=== PATIENT | female | born 1950 | race Caucasian/White ===

== ENCOUNTER → 2016-06-03 | Outpatient (CLI) | payer MEDICARE, OTHER ==
[2016-06-03 15:49] LABS: ALANINE AMINOTRANSFERASE 32 U/L (9-52); ALBUMIN 4.3 g/dL (3.5-5.0); ALKALINE PHOSPHATASE 87 U/L (38-126); ASPARTATE AMINO TRANSFERASE 24 U/L (14-36); BILIRUBIN,TOTAL 0.4 mg/dL (0.2-1.3); CHOLESTEROL 192.16 mg/dL (0-200); Direct HDL 52 mg/dL (>40); TOTAL PROTEIN 6.6 g/dL (6.3-8.2); TRIGLYCERIDES 308 mg/dL (<150)
[2016-06-03 16:00] LABS: DIRECT LDL 95 mg/dL (<100)
[2016-06-03 16:03] LABS: VLDL CHOLESTEROL 61.6 mg/dL (10-31)
== END ==
LOC: OD 13:58
PROVIDERS: ATTEND Specialist
DX: E78.5 Hyperlipidemia, unspecified (principal); E66.9 Obesity, unspecified; G89.4 Chronic pain syndrome; I34.8 Other nonrheumatic mitral valve disorders; I36.1 Nonrheumatic tricuspid (valve) insufficiency; K21.9 Gastro-esophageal reflux disease without esophagitis; R00.2 Palpitations; R09.89 Other specified symptoms and signs involving the circulatory and respiratory systems; R94.31 Abnormal electrocardiogram [ECG] [EKG]; R06.00 Dyspnea, unspecified; R51 Headache; Z79.899 Other long term (current) drug therapy
CPT/HCPCS: 36415; 80061; 80076

== ENCOUNTER → 2016-09-27 | Outpatient (CLI) | payer MEDICARE, OTHER ==
[2016-09-27 13:08] LABS: ALANINE AMINOTRANSFERASE 28 U/L (9-52); ALBUMIN 4.2 g/dL (3.5-5.0); ALKALINE PHOSPHATASE 85 U/L (38-126); ASPARTATE AMINO TRANSFERASE 25 U/L (14-36); BILIRUBIN,DIRECT 0.4 mg/dL (0.0-0.4); BILIRUBIN,TOTAL 0.6 mg/dL (0.2-1.3); CHOLESTEROL 215.97 mg/dL (0-200); Direct HDL 53 mg/dL (>40); TOTAL PROTEIN 7.2 g/dL (6.3-8.2); TRIGLYCERIDES 352 mg/dL (<150)
[2016-09-27 13:19] LABS: DIRECT LDL 95 mg/dL (<100)
[2016-09-27 13:25] LABS: VLDL CHOLESTEROL 70.4 mg/dL (10-31)
== END ==
LOC: OD 11:36
PROVIDERS: ATTEND Specialist
DX: E78.5 Hyperlipidemia, unspecified (principal)
CPT/HCPCS: 36415; 80061; 80076

== ENCOUNTER 2016-11-17 08:06 | Day surgery (SDC) | payer MEDICARE, OTHER ==
[2016-11-17 09:54] LABS: PROTHROMBIN TIME 12.2 SEC (11.4-15.4)
[2016-11-17] MEDS ORDERED: LIDOCAINE 1% INJ-PF (10 MG/ML) 30 ML SDV ONE (10:38)
[2016-11-17 14:19] VITALS: BP 133/78
--- NOTE | 2016-11-17 14:59 | RADIOLOGY REPORT (SQ) ---
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 TECHNIQUE: Fluoroscopic guided cervical and lumbar myelogram. Postmyelogram CT of the lumbar spine with sagittal and coronal reconstructions. Postmyelogram CT of the cervical spine with sagittal and coronal reconstructions LIMITATIONS: None. PROCEDURE: After written consent and assessment were obtained, the patient was brought into the fluo roscopy room and placed prone on the table. The patient's lower back was prepped in a sterile fashio n and an entry site was selected under live fluoroscopic guidance, right paracentral L2-3. The entry site was anesthetized with 3 mL of 1% lidocaine. The 22 gauge spinal needle was advanced through the skin and into the thecal sac at the right paracentral L2-3 level. 7 mL of Isovue-M 300 Contrast was injected into the thecal sac. Following the procedure the needle was removed and a sterile bandage was placed of the site. CONTRAST: 7 mL Isovue M 300. IMAGES ACQUIRED: Digital lumbar and cervical postmyelogram images to include prone cross-table and up right flexion and extension images Postmyelogram CT was performed in the cervical and lumbar regions with sagittal and coronal reconstru ctions. FINDINGS: Initial myelogram images demonstrate a battery pack and neurostimulator electrodes, electr odes are over the lower thoracic spine from T10 through T12. Lumbar postmyelogram digital radiographs demonstrate disc space loss of height and a moderate ventral epidural defects at L4-5. Disc space loss of height with a small ventral epidural defects at L3-4. No instability on upright flexion and extension. Good filling of lumbar nerve root sleeves from L2 through S1. Postmyelogram cervical digital radiographic images demonstrate no cervical myelographic block. Good filling of cervical nerve root sleeves. Postmyelogram CT cervical spine: CT scanning of the cervical spine post myelogram with sagittal and coronal reconstructions demonstrat es that the craniocervical junction, C1-2 are unremarkable. At C2-3, there is ankylosis across the facet joints bilaterally. No central or foraminal encroachmen t. At C3-4, mild diffuse posterior disc bulge and bony spurring is present without central stenosis. Th ere is mild right and moderate left foraminal narrowing from facet and uncovertebral hypertrophy. At C4-5, patient is post bilateral laminectomy. There is broad diffuse disc bulge and bony spurring without central stenosis. Moderate right, moderate to high-grade left foraminal narrowing is present . At C5-6, bilateral laminectomy defect is present. No significant central or foraminal encroachment. At C6-7, there is no central or foraminal stenosis. No significant posterior disc bulging. At C7-T1, there is no central stenosis. No significant central or foraminal encroachment. Postmyelogram CT lumbar spine: CT scanning of the lumbar spine was performed postmyelogram, with sagittal and coronal reconstruction s. The T12-L1 level is unremarkable. L1-2 is unremarkable. At L2-3, mild diffuse posterior disc bulging and mild facet and ligament hypertrophy cause borderline central canal narrowing. There is mild bilateral inferior foraminal narrowing from disc bulge and b larry spurring. At L3-4, broad diffuse posterior disc bulging and moderate bilateral facet and ligament hypertrophy c auses borderline central canal narrowing. There is mild right and moderate left foraminal narrowing without definite exiting L3 nerve root impingement. At L4-5, broad diffuse posterior disc bulge and bony spurring left greater than right along with mode rate bilateral facet and ligament hypertrophy causes borderline central canal narrowing. There is sl ightly asymmetric flattening of the thecal sac at the takeoff of the left L5 nerve root without defin ite proximal L5 nerve root impingement. Mild right, moderate left foraminal narrowing is present wit hout definite exiting L4 nerve root impingement. At L5-S1, minimal posterior disc bulging is present with mild facet hypertrophy. No central or spike inal encroachment. IMPRESSION: Post dorsal decompression in the cervical spine with bilateral laminectomies at C4-C5 an d C6. Cervical foraminal stenosis as above. Lower lumbar degenerative disc changes most pronounced at L3-4 and L4-5. Multilevel lumbar foraminal narrowing as above. COMMENT: Patient medication list reviewed: Yes- Quality ID# [id number]:Eligible professional attests to doc umenting in the medical record they obtained, updated, or reviewed the patient's current medications. . Quality ID 145: Final reports for procedures using fluoroscopy that document radiation exposure lesly ozzie, or exposure time and number of fluorographic images (if radiation exposure indices are not avail able) TECHNICAL DOCUMENTATION: JOB ID: [id number] [employer]- All Rights Reserved
== END 2016-11-17 13:50 | disposition home or self-care (01) ==
LOC: RAD 08:06
PROVIDERS: ATTEND Pain Medicine Pain Medicine
PROC: B01BYZZ Fluoroscopy of Spinal Cord using Other Contrast (ICD-10-PCS; principal; 2016-11-17)
DX: M96.1 Postlaminectomy syndrome, not elsewhere classified (principal); M48.02 Spinal stenosis, cervical region; I10 Essential (primary) hypertension; K21.9 Gastro-esophageal reflux disease without esophagitis; M79.7 Fibromyalgia; G89.4 Chronic pain syndrome; M54.2 Cervicalgia; M54.81 Occipital neuralgia; Z79.01 Long term (current) use of anticoagulants; Z79.899 Other long term (current) drug therapy; Z88.0 Allergy status to penicillin; Z79.891 Long term (current) use of opiate analgesic
CPT/HCPCS: 36415; 85610; 85730; 72270; 72126; 72132; J3490

== ENCOUNTER → 2017-03-16 | Outpatient (CLI) | payer MEDICARE, OTHER ==
[2017-03-16 17:15] LABS: ALANINE AMINOTRANSFERASE 37 U/L (9-52); ALKALINE PHOSPHATASE 77 U/L (38-126); ASPARTATE AMINO TRANSFERASE 26 U/L (14-36); BILIRUBIN,DIRECT 0.4 mg/dL (0.0-0.4); BILIRUBIN,TOTAL 0.5 mg/dL (0.2-1.3); Direct HDL 46 mg/dL (>40); TOTAL PROTEIN 6.5 g/dL (6.3-8.2); TRIGLYCERIDES 336 mg/dL (<150)
[2017-03-16 17:26] LABS: DIRECT LDL 87 mg/dL (<100)
[2017-03-16 17:32] LABS: VLDL CHOLESTEROL 67.2 mg/dL (10-31)
== END ==
LOC: OD 14:49
PROVIDERS: ATTEND Specialist
DX: E78.5 Hyperlipidemia, unspecified (principal); E66.9 Obesity, unspecified; G89.4 Chronic pain syndrome; I34.8 Other nonrheumatic mitral valve disorders; I36.1 Nonrheumatic tricuspid (valve) insufficiency; K21.9 Gastro-esophageal reflux disease without esophagitis; R00.2 Palpitations; R09.89 Other specified symptoms and signs involving the circulatory and respiratory systems; R94.31 Abnormal electrocardiogram [ECG] [EKG]; R06.00 Dyspnea, unspecified; R51 Headache; Z79.899 Other long term (current) drug therapy
CPT/HCPCS: 36415; 80061; 80076

== ENCOUNTER → 2018-01-17 | Outpatient (CLI) | payer MEDICARE, OTHER ==
[2018-01-17 14:28] LABS: ALANINE AMINOTRANSFERASE 24 U/L (9-52); ALBUMIN 4.4 g/dL (3.5-5.0); ALKALINE PHOSPHATASE 69 U/L (38-126); ASPARTATE AMINO TRANSFERASE 23 U/L (14-36); BILIRUBIN,DIRECT 0.3 mg/dL (0.0-0.4); BILIRUBIN,TOTAL 0.5 mg/dL (0.2-1.3); CHOLESTEROL 211.47 mg/dL (0-200); TOTAL PROTEIN 6.9 g/dL (6.3-8.2); TRIGLYCERIDES 286 mg/dL (<150)
[2018-01-17 14:39] LABS: DIRECT LDL 102 mg/dL (<100)
[2018-01-17 14:44] LABS: VLDL CHOLESTEROL 57.2 mg/dL (10-31)
== END ==
LOC: OD 13:31
PROVIDERS: ATTEND Specialist
DX: E78.5 Hyperlipidemia, unspecified (principal); E66.9 Obesity, unspecified; G89.4 Chronic pain syndrome; I34.8 Other nonrheumatic mitral valve disorders; I36.1 Nonrheumatic tricuspid (valve) insufficiency; K21.9 Gastro-esophageal reflux disease without esophagitis; R00.2 Palpitations; R09.89 Other specified symptoms and signs involving the circulatory and respiratory systems; R94.31 Abnormal electrocardiogram [ECG] [EKG]; R06.00 Dyspnea, unspecified; R51 Headache; Z79.899 Other long term (current) drug therapy
CPT/HCPCS: 36415; 80061; 80076

== ENCOUNTER 2018-04-11 06:38 | Day surgery (SDC) | payer MEDICARE, OTHER ==
[~2018-04-11 06:38] MED LIST: BUPIVACAINE HCL 0.75% INJ/PF (7.5 MG/1 ML) 10 ML SDV OD PRN; LIDOCAINE 4% INJ/PF (40 MG/ML) 5 ML AMPUL OD PRN
[2018-04-11] MEDS: TETRACAINE HCL 0.5% OPH SOLN 0.6 ML DROPERETTE OD PRN ×2 (07:00→07:23)
[2018-04-11] MEDS: BESIFLOXACIN HCL 0.6% OPH SUSP 5 ML BOTTLE OD PRN ×4 (07:00→07:57)
[2018-04-11] MEDS: TROPICAMIDE 1% OPH SOLN 3 ML OD PRN ×3 (07:00→07:18)
[2018-04-11] MEDS: CYCLOPENTOLATE 0.2%/PHENYLEPHRINE 1% OPH SOLN 2 ML OD PRN ×3 (07:00→07:18)
[2018-04-11] MEDS: KETOROLAC TROMETHAMINE 0.45% 4 DROP/0.4 ML DROPERETTE OD PRN ×2 (07:00→08:33)
[2018-04-11] MEDS ORDERED: DORZOLAMIDE HCL 2%/TIMOLOL MALEAT 0.5% OPH SOLN 10 ML ONE (07:06)
[2018-04-11] MEDS ORDERED: FENTANYL CITRATE INJ/PF 100 MCG/2 ML AMPUL ONE (07:18)
[2018-04-11] MEDS ORDERED: MIDAZOLAM 2 MG/2 ML INJ ONE (07:18)
[2018-04-11] MEDS: LIDOCAINE 1% INJ-PF (10 MG/ML) 30 ML SDV ONE ×2 (07:42)
[2018-04-11] MEDS: CHONDR SU A NA/HYALUR INTRAOC KIT (SURGICARE) ONE ×2 (07:42)
[2018-04-11] MEDS: EPINEPHRINE INJ/PF 1 MG/1 ML AMPULE ONE ×2 (07:42)
[2018-04-11] MEDS: DORZOLAMIDE HCL 2%/TIMOLOL MALEAT 0.5% OPH SOLN 10 ML OD PRN ×2 (07:57)
--- NOTE | 2018-04-11 10:07 | [facility] DISCHARGE SUMMARY E ---
[facility] Discharge Summary NAME: STEVEN RAMIREZ AGE: 67Y ADMITTED: 04/11/2018 DISCHARGED: 04/11/2018 FINAL DIAGNOSIS: CATARACT, RIGHT EYE HOSPITAL COURSE: The patient is a 67-year-old lady who underwent uneventful cataract extraction with intraocular lens implant, right eye on 04/11/2018. She will be discharged to home. She is instructed to resume preoperative medications, take Tylenol as needed for discomfort, to keep her eye shielded, to use Besivance, Prolensa, and Durezol at 3 p.m. and 8 p.m., and to follow up in my office in 1 day. DICTATING PHYSICIAN: GALLITO CUTLER M.D. [id number] PHY#: [id number] ID: [id number] JOB#: [id number] ACCT: [id number] cc:GALLITO CUTLER M.D. >
--- NOTE | 2018-04-11 10:07 | [facility] OPERATIVE REPORT E ---
[facility] Operative Report NAME: STEVEN RAMIREZ AGE: 67Y DATE OF SURGERY: 04/11/2018 ROOM: PREOPERATIVE DIAGNOSIS: CATARACT, RIGHT EYE. POSTOPERATIVE DIAGNOSIS: CATARACT, RIGHT EYE. PROCEDURE PERFORMED: PHACOEMULSIFICATION WITH POSTERIOR CHAMBER INTRAOCULAR LENS, RIGHT EYE. SURGEON: GALLITO CUTLER MD ANESTHESIA: TOPICAL WITH MAC. INDICATIONS FOR SURGERY: Difficulty reading road signs and driving at night. PROCEDURE: The patient was brought to the Operating Room and placed on the operative table. Following tetracaine drops, topical anesthesia was administered. This consisted of instrument wipe pledgets soaked in a solution of 4% Xylocaine mixed with 0.75% Marcaine in a 1:2 ratio. A 2 x 1 cm pledget was placed in the superior fornix. A 1 x 1 cm pledget was placed in the inferior fornix. The eye was patched shut for 5 minutes. The patch was removed. The eye was sterilely prepped and draped in the usual manner. Lid speculum was placed in the eye. The pledgets were removed. 4-0 black silk sutures were placed around the superior and the inferior rectus muscles to be used as traction. A conjunctival peritomy was made at the 10 o'clock position. Hemostasis was obtained with bipolar cautery. A posterior limbal groove was created using a crescent knife and dissected anteriorly towards the cornea. A sharp point blade was used to create a paracentesis site at the 2 o'clock position. A 2.4 mm keratome was used to enter the anterior chamber through the groove. Viscoelastic was injected into the anterior chamber. An anterior capsulotomy was performed using Utrata forceps in a capsulorrhexis fashion. Hydrodissection and hydrodelineation were performed. Phacoemulsification was performed in csvxio-pmy-veymlmg technique. A total of 6.19 CDE phaco time was used. Following this, the I/A unit was used to remove residual cortex. Viscoelastic was injected into the capsular bag. Intraocular lens model [id number], 21.0 diopters, serial number [id number] was placed in the capsular bag. The I/A unit was used to remove residual viscoelastic. The wound was seen to be watertight under high and low pressure, and no sutures were placed. The intraocular lens was well centered. The pressure was adjusted in the eye to normal pressure. The 4-0 black silk sutures and lid speculum were removed. The eye was shielded after Besivance drops were placed. The patient tolerated the procedure well and was sent to the Recovery Room in good condition. One drop of Cosopt was placed in the eye at the end of the surgery. DICTATING PHYSICIAN: GALLITO CUTLER M.D. DICTATING PHYSICIAN: GALLITO CUTLER M.D. [id number] Y#: [id number] ID: [id number] JOB#: [id number] ACCT: [id number] cc:GALLITO CUTLER M.D. >
== END 2018-04-11 08:57 | disposition home or self-care (01) ==
LOC: SC 06:38
PROVIDERS: ATTEND Ophthalmology
DX: H25.813 Combined forms of age-related cataract, bilateral (principal); H16.223 Keratoconjunctivitis sicca, not specified as Sjogren's, bilateral; H52.4 Presbyopia; H11.042 Peripheral pterygium, stationary, left eye; I10 Essential (primary) hypertension; K21.9 Gastro-esophageal reflux disease without esophagitis; M79.7 Fibromyalgia; G89.29 Other chronic pain; E04.1 Nontoxic single thyroid nodule; R00.2 Palpitations; Z85.828 Personal history of other malignant neoplasm of skin; Z79.899 Other long term (current) drug therapy; Z79.82 Long term (current) use of aspirin; Z88.0 Allergy status to penicillin
CPT/HCPCS: 66984; V2632; J2250; J3490 ×5; A9270; J0171; J3010; 142

== ENCOUNTER 2018-05-02 08:40 | Day surgery (SDC) | payer MEDICARE, OTHER ==
[~2018-05-02 08:40] MED LIST changes: -BUPIVACAINE HCL 0.75% INJ/PF (7.5 MG/1 ML) 10 ML SDV OD PRN; +BUPIVACAINE HCL 0.75% INJ/PF (7.5 MG/1 ML) 10 ML SDV OS PRN; +CHONDR SU A NA/HYALUR INTRAOC KIT (SURGICARE) ONE; +EPINEPHRINE INJ/PF 1 MG/1 ML AMPULE ONE; +KETOROLAC TROMETHAMINE 0.45% 4 DROP/0.4 ML DROPERETTE OS PRN; +LIDOCAINE 1% INJ-PF (10 MG/ML) 30 ML SDV ONE; -LIDOCAINE 4% INJ/PF (40 MG/ML) 5 ML AMPUL OD PRN; +LIDOCAINE 4% INJ/PF (40 MG/ML) 5 ML AMPUL OS PRN
[2018-05-02] MEDS: TETRACAINE HCL 0.5% OPH SOLN 0.6 ML DROPERETTE OS PRN ×2 (09:36→09:54)
[2018-05-02] MEDS: CYCLOPENTOLATE 0.2%/PHENYLEPHRINE 1% OPH SOLN 2 ML OS PRN ×3 (09:36→09:53)
[2018-05-02] MEDS: TROPICAMIDE 1% OPH SOLN 3 ML OS PRN ×3 (09:36→09:53)
[2018-05-02] MEDS: BESIFLOXACIN HCL 0.6% OPH SUSP 5 ML BOTTLE OS PRN ×4 (09:36→10:36)
[2018-05-02] MEDS ORDERED: MIDAZOLAM 2 MG/2 ML INJ ONE (09:45)
[2018-05-02] MEDS ORDERED: FENTANYL CITRATE INJ/PF 100 MCG/2 ML AMPUL ONE (09:45)
[2018-05-02] MEDS: DORZOLAMIDE HCL 2%/TIMOLOL MALEAT 0.5% OPH SOLN 10 ML OS PRN ×2 (10:36)
--- NOTE | 2018-05-02 11:17 | [facility] DISCHARGE SUMMARY E ---
[facility] Discharge Summary NAME: STEVEN RAMIREZ AGE: 67Y ADMITTED: 05/02/2018 DISCHARGED: 05/02/2018 FINAL DIAGNOSIS: CATARACT, LEFT EYE HOSPITAL COURSE: The patient is a 67-year-old lady who underwent uneventful cataract extraction with intraocular lens implant, left eye on 05/02/2018. She will be discharged to home. She is instructed to resume preoperative medications, take Tylenol as needed for discomfort, to keep her eye shielded, to use Durezol, Prolensa, and Besivance at 3 p.m. and 8 p.m., and to follow up in my office in 1 day. DICTATING PHYSICIAN: GALLITO CUTLER M.D. [id number] PHY#: [id number] ID: [id number] JOB#: [id number] ACCT: [id number] cc:GALLITO CUTLER M.D. >
--- NOTE | 2018-05-02 11:17 | [facility] OPERATIVE REPORT E ---
[facility] Operative Report NAME: STEVEN RAMIREZ AGE: 67Y DATE OF SURGERY: 05/02/2018 ROOM: PREOPERATIVE DIAGNOSIS: CATARACT, LEFT EYE. POSTOPERATIVE DIAGNOSIS: CATARACT, LEFT EYE. PROCEDURE PERFORMED: PHACOEMULSIFICATION WITH POSTERIOR CHAMBER INTRAOCULAR LENS, LEFT EYE. SURGEON: GALLITO CUTLER MD ANESTHESIA: TOPICAL WITH MAC. INDICATIONS FOR SURGERY: Difficulty reading road signs and glare. Best corrected visual acuity 20/40. PROCEDURE: The patient was brought to the Operating Room and placed on the operative table. Following tetracaine drops, topical anesthesia was administered. This consisted of instrument wipe pledgets soaked in a solution of 4% Xylocaine mixed with 0.75% Marcaine in a 1:2 ratio. A 2 x 1 cm pledget was placed in the superior fornix. A 1 x 1 cm pledget was placed in the inferior fornix. The eye was patched shut for 5 minutes. The patch was removed. The eye was sterilely prepped and draped in the usual manner. Lid speculum was placed in the eye. The pledgets were removed. 4-0 black silk sutures were placed around the superior and the inferior rectus muscles to be used as traction. A conjunctival peritomy was made at the 10 o'clock position. Hemostasis was obtained with bipolar cautery. A posterior limbal groove was created using a crescent knife and dissected anteriorly towards the cornea. A sharp point blade was used to create a paracentesis site at the 2 o'clock position. A 2.4 mm keratome was used to enter the anterior chamber through the groove. Viscoelastic was injected into the anterior chamber. An anterior capsulotomy was performed using Utrata forceps in a capsulorrhexis fashion. Hydrodissection and hydrodelineation were performed. Phacoemulsification was performed in [id number]-cgp-[id number] technique. A total of 3.23 CDE phaco time was used. Following this, the I/A unit was used to remove residual cortex. Viscoelastic was injected into the capsular bag. Intraocular lens model [id number], 21.5 diopters, serial number [id number] was placed in the capsular bag. The I/A unit was used to remove residual viscoelastic. The wound was seen to be watertight under high and low pressure, and no sutures were placed. The intraocular lens was well centered. The pressure was adjusted in the eye to normal pressure. The 4-0 black silk sutures and lid speculum were removed. The eye was shielded after Besivance drops were placed. The patient tolerated the procedure well and was sent to the Recovery Room in good condition. A drop of Cosopt was placed in the eye at the end of surgery. DICTATING PHYSICIAN: GALLITO CUTLER M.D. DICTATING PHYSICIAN: GALLITO CUTLER M.D. [id number] [facility]#: [id number] ID: [id number] JOB#: [id number] ACCT: [id number] cc:GALLITO CUTLER M.D. >
== END 2018-05-02 11:13 | disposition home or self-care (01) ==
LOC: SC 08:40
PROVIDERS: ATTEND Ophthalmology
DX: H25.812 Combined forms of age-related cataract, left eye (principal); Z96.1 Presence of intraocular lens; I10 Essential (primary) hypertension; M19.90 Unspecified osteoarthritis, unspecified site; G47.30 Sleep apnea, unspecified; Z79.899 Other long term (current) drug therapy; K21.9 Gastro-esophageal reflux disease without esophagitis; Z88.0 Allergy status to penicillin; Z88.1 Allergy status to other antibiotic agents; Z79.82 Long term (current) use of aspirin
CPT/HCPCS: 66984; J2250; J3490 ×4; A9270; J0171; J3010; 142